=== PATIENT | female | born 1970 | race Caucasian/White ===

== ENCOUNTER 2018-09-11 09:24 | Outpatient (CLI) | payer BC, SELFPAY ==
[2018-09-11 11:18] LABS: BUN 15 mg/dL (7-18); CREATININE 0.73 mg/dL (0.55-1.02); Chloride 104 mmol/L (98-107); Glucose 99 mg/dL (70-100); Potassium 4.3 mmol/L (3.5-5.1); Sodium 140 mmol/L (136-145)
== END 2018-09-11 09:44 ==
PROVIDERS: PCP Emergency Medicine; Visit Provider Emergency Medicine
DX: I10 Essential (primary) hypertension (principal)
CPT/HCPCS: 36415; 80048

== ENCOUNTER 2024-03-12 14:53 | Outpatient (CLI) | payer BC, SELFPAY ==
--- NOTE | 2024-03-12 13:30 | DI.RAD_ITS ---
Exam(s) XR SHOULDER LT COMPLETE 2+V EXAM: XR SHOULDER LT COMPLETE 2+V CLINICAL HISTORY: LEFT SHOULDER PAIN. TECHNIQUE: 2D digital imaging was performed. COMPARISON: No exams were available for comparison FINDINGS: Two views. There is no evidence of fracture or dislocation. Normal soft tissue calcifications in the non dimini shed subacromial space. Main finding here is severe advanced [id number] narrowing of the glenohumeral compartment. There a re degenerative subarticular cysts in the osseous glenoid. There is a prominent osteophyte on the in ferior articular surface of the humeral head. 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
== END 2024-03-12 14:54 | disposition home or self-care (01) ==
LOC: DIORS 14:54
PROVIDERS: PCP Nurse Practitioner Family; Visit Provider Student in an Organized Health Care Education/Training Program
DX: M25.512 Pain in left shoulder (principal)
CPT/HCPCS: 73030

== ENCOUNTER 2025-09-23 08:48 | Outpatient (CLI) | payer BC, SELFPAY ==
--- NOTE | 2025-09-23 08:30 | DI.RAD_ITS ---
Exam(s) XR SHOULDER LT COMPLETE 2+V EXAM: XR SHOULDER LT COMPLETE 2+V CLINICAL HISTORY: LEFT SHOULDER PAIN. TECHNIQUE: 2D digital imaging was performed. COMPARISON: CR XR SHOULDER LT COMPLETE 2+V from 03/12/2024 FINDINGS: 3 views No evidence of fracture or dislocation or abnormal soft tissue calcifications. However, there is severe narrowing of the glenohumeral joint consistent with advanced degenerative changes. Also osteophytes and few small degenerative subarticular cysts on both sides the joint. Also a small bony excrescence off the superior aspect of the greater tuberosity, also related to degenerative changes. No significant bone lesions. Bone density otherwise normal. IMPRESSION: Advanced osteoarthritic degenerative changes in the left shoulder glenohumeral joint. DATA REPOSITORY: RADIATION DOSE DELIVERED:
== END 2025-09-23 08:49 | disposition home or self-care (01) ==
LOC: DIORS 08:48
PROVIDERS: PCP Nurse Practitioner Family; Referring Provider Nurse Practitioner Family; Visit Provider Physician Assistant
DX: M19.012 Primary osteoarthritis, left shoulder (principal)
CPT/HCPCS: 73030